=== PATIENT | male | born 1975 | race African-American/Black ===

== ENCOUNTER 2019-10-21 15:52 | Emergency (ER) | payer OTHER, MEDICAID ==
[~2019-10-21] VITALS: Ht 185.4 cm; Wt 122.5 kg
[2019-10-21 16:06] VITALS: BP 155/101
[2019-10-21] MEDS ORDERED: HYDROcodone-ACET 10/325MG TAB PO ONE (17:30)
== END 2019-10-21 18:42 | disposition home or self-care (01) ==
LOC: ER 15:52
DX: S90.02XA Contusion of left ankle, initial encounter (principal); R07.81 Pleurodynia; E11.9 Type 2 diabetes mellitus without complications; I10 Essential (primary) hypertension; V43.52XA Car driver injured in collision with other type car in traffic accident, initial encounter; Y93.89 Activity, other specified; Y92.488 Other paved roadways as the place of occurrence of the external cause; Y99.8 Other external cause status
CPT/HCPCS: 71101; 71250

== ENCOUNTER 2024-09-08 17:18 | Inpatient (IN) | payer MEDICAID, OTHER ==
[~2024-09-08] VITALS: Ht 182.9 cm; Wt 105.0 kg
--- NOTE | 2024-09-08 17:56 | ED.PDOC ---
GI ASSESSMENT HPI Comments HPI: Poor Historian. 49-year-old male brought in by ambulance from home. Patient called 911 for two week history of nonspecific epigastric pain intermittent nonradiating. Patient states that he smokes marijuana at least five Bong a day. Denies any other use of drugs. Has occasional use of alcohol. Denies any other acute symptoms. Vomit is food content. Past Medical History: Past Surgical History: 49y M who presents to the ED via EMS for chief complaint of abdominal pain. - pt states he has been having epigastric abdominal pain for the past 2x weeks - pt states his pain is intermittent, non-radiating, with no associated exacerbating or relieving factors - pt states he has been having exacerbation of his symptoms and called EMS - EMS arrived on scene and noted stable vitals - EMS states pt has 1x vomiting episode witnessed with vomit containing food particles - pt was given IV fluids, 8 mg Zofran and 1 gram Tylenol prior to ED arrival - pt in the ED, otherwise states he smokes 5 bongs of marijuana daily - pt otherwise denies any other symptoms at this time past medical history: Anhidrotic ectodermal dysplasia, DM, HTN past surgical history: denies allergies: denies medications: denies social history: denies tobacco use, denies ETOH use, endorses drug use (marijuana) REVIEW OF SYSTEMS: CONSTITUTIONAL: Denies acute: fever, diaphoresis, chills, HEAD: Denies acute: headache, photophobia Eyes: Denies acute: Double vision, vision loss, eye pain, eye discharge. EARS: Denies acute: tinnitus, hearing loss, ear discharge, ear pain, THROAT: Denies acute: sore throat, swelling, difficulty swallowing , pain with swallowing, change in voice. NECK: Denies acute: neck pain, neck swelling, stiff neck. HEART: Denies acute : chest pain, palpitations, LUNGS: Denies acute: SOB, wheezing, cough, hemoptysis ABDOMEN: Denies acute: diarrhea, melena , hematemesis, hematochezia SKIN: Denies acute: rash, redness, lesions, itchiness. EXTREMITIES: Denies acute: calf pain, numbness, tingling, weakness, denies pain in extremity. Denies acute: Low back pain. Neuro: Denies acute: focal neurological deficit, motor or sensory focal neurological deficit, tremors, seizure like activity, confusion, dizziness, change in mental status, loss of bowel or bladder function, cauda equina like symptoms. : Denies acute: dysuria, hematuria, flank pain, increase in urinary frequency. PSYCH: Denies acute: hallucination, suicidal ideation, homicidal ideation. PHYSICAL EXAM: General: -----mild---acute distress, awake and alert. Head: normocephalic, atraumatic. Neck: supple, trachea is midline, no swelling. Throat: Normal phonation. Eyes:, no erythema, no purulent discharge, no proptosis, no icterus. Heart: regular rate, regular rhythm, no significant murmur appreciated. Lungs: no apparent respiratory distress, Able to speak in full sentences. No wheezing, no rhonchi, no crackles. No stridors Clear to auscultation bilaterally. Abdomen: Epigastric tender to palpation, non distended, soft, no guarding, no rebound, + bowel sounds. Neuro: Awake, Alert, oriented to name, self, situation, follows commands GCS=15. Speech is normal. Skin: no petechia, no purpura, no cyanosis, non-pale, not jaundice. Lower extremities: --no - Pitting edema no deformity, no focal swelling, no calf TTP. Makes eye contact. moves all four extremities. Face: no apparent facial droop. no meningeal signs. ED COURSE: DISCLAIMER: This medical document was created using an electronic medical record system with voice recognition software and computerized dictation system. Although this document has been carefully reviewed, there might still be some phonetic and typographical errors. Occasional wrong-word or "sound-alike" substitutions may have occurred due to the inherent limitations of voice recognition software. These areas are purely typographical due to imperfections of the software p prince and do not reflect any compromise in the patient's medical care. Please read the chart carefully and recognize, using context, where these substitutions have occurred. Chief Complaint: Abdominal Pain Time Seen by MD: 17:22 Primary Care Provider: Michele Reviewed Notes: Medications, Allergies Allergies: Coded Allergies: EDVIN Inhibitors (Verified Allergy, Unknown, 04/19/14) Iodine (Verified Allergy, Unknown, 04/19/14) Home Meds No Active Prescriptions or Reported Meds Information Source: Patient, Emergency Med Personnel Mode of Arrival: EMS Past Medical History PAST MEDICAL HISTORY: DM, HTN Surgical History: Denies all surgeries Family History Family History: Reviewed,noncontributory to illness Social History Smoker: Non-Smoker Alcohol: Denies ETOH Use Drugs: Denies Drug Use Lives In: Home Was a procedure done? Was a procedure done?: No GI differential Dx Differential Diagnosis: Other (DDX include but not limited to diverticulitis, colitis, gastroenteritis, acute abdomen, SBO, enteritis, constipation, volvulus, appendicitis, Gallbladder disease, choledocolithiasis, ascending cholangitis, pancreatitis, intraAbdominal mass/neoplasm, hepatitis, UTI, pylonephritis, kidney stone, aneurysm, dissection, Inflammatory bowel disease, gastroparesis, ischemic bowel.) X-Ray, Labs, Meds, VS Vital Signs Date Time Temp Pulse Resp B/P (MAP) Pulse Ox O2 Delivery O2 Flow Rate FiO2 09/08/24 20:33 68 09/08/24 19:34 98.7 60 18 137/75 (95) 96 98.7 09/08/24 17:18 98.1 60 18 154/87 (109) 99 98.1 Lab Test 09/08/24 19:37 09/08/24 18:43 09/08/24 17:18 Range/Units Troponin I High Sensitivity 7 8 </=54 ng/L White Blood Count 9.4 4.4-10.8 10^3/uL Red Blood Count 4.93 4.5-5.90 10^6/uL Hemoglobin 15.1 13.5-17.5 g/dL Hematocrit 44.0 41.0-53.0 % Mean Corpuscular Volume 89.3 80.0-100.0 fL Mean Corpuscular Hemoglobin 30.6 28.0-32.0 pg Mean Corpuscular Hemoglobin Concent 34.3 32.0-36.0 g/dL Red Cell Distribution Width 14.7 H 11.8-14.3 % Platelet Count 236 140-450 10^3/uL Mean Platelet Volume 8.5 6.9-10.8 fL Neutrophils (%) (Auto) 79.0 37.0-80.0 % Lymphocytes (%) (Auto) 15.8 10.0-50.0 % Monocytes (%) (Auto) 4.8 0.0-12.0 % Eosinophils (%) (Auto) 0.0 0.0-7.0 % Basophils (%) (Auto) 0.4 0.0-2.0 % Neutrophils # (Auto) 7.4 1.6-8.6 10 ^3/uL Lymphocytes # (Auto) 1.5 0.4-5.4 10 ^3/uL Monocytes # (Auto) 0.5 0-1.3 10 ^3/uL Eosinophils # (Auto) 0 0-0.8 10 ^3/uL Basophils # (Auto) 0 0-0.2 10 ^3/uL Nucleated Red Blood Cells 0.0 % Sodium Level 141 136-145 mmol/L Potassium Level 3.7 3.5-5.1 mmol/L Chloride Level 102 98-107 mmol/L Carbon Dioxide Level 30 20-31 mmol/L Anion Gap 9 5-15 Blood Urea Nitrogen 17 9-23 mg/dL Creatinine 1.59 H 0.700-1.30 mg/dL Glomerular Filtration Rate Calc 53 >90 mL/min BUN/Creatinine Ratio 10.7 10.0-20.0 Serum Glucose 118 H 74-106 mg/dL Lactic Acid Level 0.9 0.4-2.0 mmol/L Calcium Level 9.5 8.7-10.4 mg/dL Total Bilirubin 0.7 0.2-1.0 mg/dL Aspartate Amino Transferase (AST) 32 <34 U/L Alanine Aminotransferase (ALT) 26 7-40 U/L Alkaline Phosphatase 52 46-116 U/L Total Protein 7.6 5.7-8.2 g/dL Albumin 4.6 3.2-4.8 g/dL Lipase 194 H 12-53 U/L Urine Color Yellow Yellow Urine Clarity Clear Clear Urine pH 7.0 5.0-9.0 Urine Specific [place] 1.033 1.001-1.035 Urine Protein 1+ H Negative Urine Ketones 2+ H Negative Urine Blood Negative Negative /uL Urine Nitrite Negative Negative Urine Bilirubin Negative Negative Urine Urobilinogen 3 H Negative mg/dL Urine Leukocyte Esterase Negative Negative /uL Urine RBC 3 0 - 3 /hpf Urine Microscopic WBC 4 H 0-3 /HPF Urine Squamous Epithelial Cells Mod <5 /hpf Urine Bacteria None seen None Seen /hpf Urine Glucose Normal Normal mg/dL [facility] [id number] [facility] [id number] Ph: [phone] DIAGNOSTIC IMAGING Diagnostic Imaging Report : [id number] Signed PATIENT: FREDO BLANCHARD ACCT: [id number] UNIT: [id number] : 1975 LOC: ER ROOM / BED: / AGE / SEX: 49 / M ADM STATUS: REG ER SERVICE [id number] ORDERING PHYSICIAN: OXANA BERRY DO PROCEDURE(s): ABPL - CT AB PEL WO CON-NO ORAL OR IV REASON: abd pain n/v ORDER NUMBER(s): [id number], ACCESSION NUMBER(s): [id number] Exam: CT CT AB PEL WO CON-NO ORAL OR IV History: abd pain n/v Comparison Study: None TECHNIQUE: Multidetector CT of the abdomen was performed from lung bases to p ubic symphysis. Imaging was performed without IV contrast. Axial, coronal and sagittal multiplanar reformats were obtained from the axial data set by the technologist. Radiation Dose Information: CT Dose: CTDI volume is 13.5 mGy. Dose-length product is 745.25 mGy*cm FINDINGS: Evaluation of solid organs is limited due to lack of intravenous contrast use. Findings: Lung Bases: No acute or significant lung base finding. Normal heart size. No pleural or pericardial effusion. Liver: The liver is normal in size. No focal lesions. Gallbladder and Biliary Tree: Unremarkable Spleen: Unremarkable Pancreas: The pancreas is grossly normal in appearance. Adrenal Glands: 2.2 cm left adrenal nodule tissue density -6 Hounsfield units consistent with a adenomyolipoma. Kidneys: Kidneys are grossly normal without calculi or hydronephrosis. Bladder: Grossly unremarkable for degree of distention. Bowel: The stomach is grossly normal in appearance. Small bowel and colon are normal in caliber and distribution. The appendix is not visualized; however, no secondary findings of acute appendicitis identified. Ascites: Absent Lymphadenopathy: No mesenteric, retroperitoneal or periportal lymphadenopathy. Abdominal Wall and Mesentery: Unremarkable. Vasculature: The visualized abdominal aorta is normal in size and caliber. Evaluation of abdominal and pelvic vessels is limited due to lack of intravenous contrast. Pelvic Organs: Unremarkable Musculoskeletal: No aggressive focal bony lesions, acute fractures or dislocation. Soft tissues: Unremarkable IMPRESSION: 1. 2.2 cm nodule left adrenal gland with tissue density consistent with fat. 2. No findings of bowel obstruction 3. No nephrolithiasis or hydronephrosis. 4. No calcified gallstones. Radiation optimization: All CT scans at this facility use at least one of these dose optimization techniques: automated exposure control mA and/or kV adjustment per patient size (includes targeted exams where dose is matched to clinical indication) or iterative reconstruction. ATED BY: MATT MANLEY Jr., DO DICTATED DATE/TIME: 09/08/241844 SIGNED BY: MATT MANLEY Jr., SIGNED DATE/TIME: 09/08/241844 CC: Time of 1ST Reevaluation: 00:00 Reevaluation 1ST: N/A Patient Education/Counseling: Diagnosis, Treatment Family Education/Counseling: No Family Present Comments Patient presented with the above HPI.---abdominal pain---workup was initiated. patient was found with the above mentioned diagnosis. the following medications were ordered: please refer to order lists of meds and tests obtained by myself Dr. Berry. Patient ED course and VS have been stabilized. Patient has been reassessed in the ED and remained in a stable condition. Pertinent incidental findings were discussed with the patient and/or family. Patient/family voices understanding and is agreeable with plan. Patient has been observed in the ED adequate length of time to insure improvement/stability. Escalation of care considered: Consideration of escalation to observation or admission Patient was ADMITTED to the medicine team for further evaluation and treatment of their presentation. All the reports of any imaging studies that were ordered by myself were reviewed by myself. Departure 1 Departure Time of Disposition: 18:08 Impression: Primary Impression: Marijuana abuse Additional Impression: Acute pancreatitis Disposition: ADMITTED INPATIENT Admit to: Tele Condition: Guarded e-Prescriptions No Active Prescriptions or Reported Meds Discharged With: Self Critical Care Note Critical Care Time?: Yes (35 min-critical care time only) I personally scribed for OXANA BERRY DO ([email or web address]) on 09/08/24 at 17:56. Electronically submitted by Allen Patel ([facility]). I personally scribed for OXANA BERRY DO ([facility]) on 09/08/24 at 18:23. Electronically submitted by Allen Patel ([facility]). I personally scribed for XOANA BERRY DO ([facility]) on 09/08/24 at 18:28. Electronically submitted by Allen Patel ([facility]). I personally scribed for OXANA BERRY DO ([facility]) on 09/08/24 at 21:19. Electronically submitted by Allen Patel ([facility]). OXANA BERRY DO Sep 08, 2024 17:56
--- NOTE | 2024-09-08 18:47 | DVH ---
Exam: CT CT AB PEL WO CON-NO ORAL OR IV History: abd pain n/v Comparison Study: None TECHNIQUE: Multidetector CT of the abdomen was performed from lung bases to pubic symphysis. Imaging was performed without IV contrast. Axial, coronal and sagittal multiplanar reformats were obtained fr om the axial data set by the technologist. Radiation Dose Information: CT Dose: CTDI volume is 13.5 mGy. Dose-length product is 745.25 mGy*cm FINDINGS: Evaluation of solid organs is limited due to lack of intravenous contrast use. Findings: Lung Bases: No acute or significant lung base finding. Normal heart size. No pleural or pericardial effusion. Liver: The liver is normal in size. No focal lesions. Gallbladder and Biliary Tree: Unremarkable Spleen: Unremarkable Pancreas: The pancreas is grossly normal in appearance. Adrenal Glands: 2.2 cm left adrenal nodule tissue density -6 Hounsfield units consistent with a adeno myolipoma. Kidneys: Kidneys are grossly normal without calculi or hydronephrosis. Bladder: Grossly unremarkable for degree of distention. Bowel: The stomach is grossly normal in appearance. Small bowel and colon are normal in caliber and d istribution. The appendix is not visualized; however, no secondary findings of acute appendicitis id entified. Ascites: Absent Lymphadenopathy: No mesenteric, retroperitoneal or periportal lymphadenopathy. Abdominal Wall and Mesentery: Unremarkable. Vasculature: The visualized abdominal aorta is normal in size and caliber. Evaluation of abdominal a nd pelvic vessels is limited due to lack of intravenous contrast. Pelvic Organs: Unremarkable Musculoskeletal: No aggressive focal bony lesions, acute fractures or dislocation. Soft tissues: Unremarkable IMPRESSION: 1. 2.2 cm nodule left adrenal gland with tissue density consistent with fat. 2. No findings of bowel obstruction 3. No nephrolithiasis or hydronephrosis. 4. No calcified gallstones. Radiation optimization: All CT scans at this facility use at least one of these dose optimization te chniques: automated exposure control mA and/or kV adjustment per patient size (includes targeted exa ms where dose is matched to clinical indication) or iterative reconstruction.
[2024-09-08 19:08] LABS: Basophils # (auto) 0 10 ^3/uL (0-0.2); Basophils % (auto) 0.4 % (0.0-2.0); Eosinophils # (auto) 0 10 ^3/uL (0-0.8); Hemoglobin 15.1 g/dL (13.5-17.5); Lymphocytes # (auto) 1.5 10 ^3/uL (0.4-5.4); Lymphocytes % (auto) 15.8 % (10.0-50.0); Mean Corpuscular Hemoglobin 30.6 pg (28.0-32.0); Mean Corpuscular Hgb Conc. 34.3 g/dL (32.0-36.0); Mean Corpuscular Volume 89.3 fL (80.0-100.0); Monocytes # (auto) 0.5 10 ^3/uL (0-1.3); Monocytes % (auto) 4.8 % (0.0-12.0); Neutrophils # (auto) 7.4 10 ^3/uL (1.6-8.6); Platelet Count (auto) 236 10^3/uL (140-450); Red Blood Cells 4.93 10^6/uL (4.5-5.90); Red Cell Distribution Width 14.7 % (11.8-14.3); White Blood Cell 9.4 10^3/uL (4.4-10.8)
[2024-09-08 19:30] LABS: Alanine Aminotransferase 26 U/L (7-40); Alkaline Phosphatase 52 U/L (46-116); Anion Gap 9 (5-15); Aspartate Aminotransferase 32 U/L (<34); BUN/Creatinine Ratio 10.7 (10.0-20.0); Blood Urea Nitrogen 17 mg/dL (9-23); Calcium 9.5 mg/dL (8.7-10.4); Carbon Dioxide 30 mmol/L (20-31); Chloride 102 mmol/L (98-107); Potassium 3.7 mmol/L (3.5-5.1); Sodium 141 mmol/L (136-145); Total Protein 7.6 g/dL (5.7-8.2)
[2024-09-08 19:31] LABS: Albumin 4.6 g/dL (3.2-4.8); Bilirubin, Total 0.7 mg/dL (0.2-1.0)
[2024-09-08 19:32] LABS: Glucose 118 mg/dL (74-106); Lipase 194 U/L (12-53)
[2024-09-08] MEDS: SODIUM CHLORIDE 0.9% 1,000 ML IV ONE (20:23)
[2024-09-08] MEDS: ONDANSETRON HCL 4 MG/2 ML VIAL IV ONE (20:24)
[2024-09-08 22:01] LABS: Urine Bacteria None Seen /hpf (None Seen)
[2024-09-08 22:07] LABS: Urine Blood Negative /uL (Negative); Urine Clarity Clear (Clear); Urine Color Yellow (Yellow); Urine Protein, UAD 1+ (Negative); Urine Specific Gravity 1.033 (1.001-1.035); Urine Squamous Epithelial Cell MOD /hpf (<5); Urine Urobilinogen 3 mg/dL (Negative); Urine WBC 4 /HPF (0-3)
[2024-09-08] MEDS ORDERED: HYDROcodone-ACET 5/325MG TAB PO PRN (22:30)
[2024-09-08] MEDS ORDERED: ACETAMINOPHEN 325 MG TAB PO PRN (22:30)
[2024-09-08] MEDS ORDERED: MORPHINE SULFATE INJ 2 MG/ml SYRG IV PRN ×2 (22:30→23:45)
[2024-09-08] MEDS: LACTATED RINGER'S 1,000 ML IV SCH (22:30)
[2024-09-08] MEDS ORDERED: DOCUSATE SOD 100 MG CAP PO PRN (22:30)
[2024-09-08] MEDS ORDERED: NITROGLYCERIN 0.4 MG SL TAB SL PRN (23:45)
--- NOTE | 2024-09-08 23:46 | DVHHP2 ---
History of Present Illness Reason for Visit: Acute pancreatitis History of Present Illness The patient is a 49 male with past medical history of diabetes mellitus and hypertension who presented to [facility] ED with complaint of abdominal pain. Patient reports symptoms progressively get worse with intermittent epigastric abdominal pain for the past 2 weeks, nonradiating, rating 7/10 numeric scale, getting worse today that prompted this visit. Patient was seen and evaluated in the ED, laboratory data shows WBC 9.4, platelets 236, sodium 141, potassium 3.7, BUN 17, creatinine 1.59, glucose 118, calcium 9.5, troponin 7, lipase 194, blood pressure 137/75, heart rate 68, temperature 98.7 F, O2 saturation 96% on room air. Abdomen/pelvis CT revealing 2.2 cm nodule left adrenal gland with tissue density consistent with fat, no findings of bowel obstruction. Please see medication orders section in the computer. On my assessment, patient denied chest pain, no headache, no dizziness, diaphoresis, no shortness of breaths, no abdominal pain at this moment, no nausea, no vomiting, no fever, no chills. Patient was admitted for further evaluation and medical management. Past Medical History DM, HTN Past Surgical History Denies all surgeries Family History Reviewed, noncontributory to the management of this case. Past Social History The patient lives at home, denies smoking, no alcohol, uses marijuana. Review of Systems Constitutional: No: Fever, Chills, Sweats, Weakness, Malaise, Other Eyes: No: Pain, Vision change, Conjunctivae inflammation, Eyelid inflammation, Other, Redness ENT: No: Ear pain, Ear discharge, Nose pain, Nose discharge, Nose congestion, Mouth pain, Mouth swelling, Throat pain, Throat swelling, Other Respiratory: No: Cough, Dry, Shortness of breath, SOB with excertion, Wheezing, Hemoptysis, Pleuritic Pain, Sputum, Wheezing, Other Cardiovascular: No: Chest Pain, Palpitations, Orthopnea, Paroxysmal Noc. Dyspnea, Edema, Lt Headedness, Other Gastrointestinal: Abdominal Pain; No: Nausea, Vomiting, Diarrhea, Constipation, Melena, Hematochezia, Other Genitourinary: No Dysuria, No Frequency, No Incontinence, No Hematuria, No Retention, No Other Musculoskeletal: No: other, neck pain, shoulder pain, arm pain, back pain, hand pain, leg pain, foot pain Skin: No: Rash, Lesions, Jaundice, Bruising, Other Neurological: No: Weakness, Numbness, Incoordination, Change in speech, Con fusion, Seizures, Other Allergies: Coded Allergies: EDVIN Inhibitors (Verified Allergy, Unknown, 04/19/14) Iodine (Verified Allergy, Unknown, 04/19/14) Medications Current Medications Medications Dose Ordered Sig/Akash Route Start Time Stop Time Status Last Admin Dose Admin Lactated Ringer's 1,000 ml @ 100 mls/hr Q10H IV 09/08/24 22:30 Acetaminophen/ Hydrocodone Bitart 1 tab Q4HP PRN PO 09/08/24 22:30 Ondansetron HCl 4 mg Q4HP PRN IV 09/08/24 22:30 Docusate Sodium 100 mg BIDPRN PRN PO 09/08/24 22:30 Acetaminophen 650 mg Q6HP PRN PO 09/08/24 22:30 Morphine Sulfate 2 mg Q4HPRN PRN IV 09/08/24 22:30 Exam Vital Signs Vital Signs Date Time Temp Pulse Resp B/P (MAP) Pulse Ox O2 Delivery O2 Flow Rate FiO2 09/08/24 20:33 68 09/08/24 19:34 98.7 18 137/75 (95) 96 98.7 General Appearance: Alert, Oriented X3, Cooperative, No acute distress HEENT: Atraumatic, PERRLA, EOMI, Mucous membr. moist/pink Respiratory: Clear to auscultation, Normal air movement Cardiovascular: Regular rate, Normal S1, Normal S2, No murmurs Abdominal: Normal bowel sounds, Soft, No hepatospenomegaly, No masses, Other (Reports tenderness) Extremities: No clubbing, No cyanosis, No edema, Normal pulses, No tenderness/swelling Skin: No rashes, No breakdown, No significant lesion Neuro: Normal gait, Normal speech, Strength at 5/5 X4 ext, Normal tone, Sensation intact, Cranial nerves 3-12 NL, Reflexes 2+ Psych/Mental Status: Mental status NL, Mood NL Labs/Xrays Labs Test 09/08/24 19:37 09/08/24 18:43 09/08/24 17:18 Range/Units Troponin I High Sensitivity 7 </=54 ng/L White Blood Count 9.4 4.4-10.8 10^3/uL Red Blood Count 4.93 4.5-5.90 10^6/uL Hemoglobin 15.1 13.5-17.5 g/dL Hematocrit 44.0 41.0-53.0 % Mean Corpuscular Volume 89.3 80.0-100.0 fL Mean Corpuscular Hemoglobin 30.6 28.0-32.0 pg Mean Corpuscular Hemoglobin Concent 34.3 32.0-36.0 g/dL Red Cell Distribution Width 14.7 H 11.8-14.3 % Platelet Count 236 140-450 10^3/uL Mean Platelet Volume 8.5 6.9-10.8 fL Neutrophils (%) (Auto) 79.0 37.0-80.0 % Lymphocytes (%) (Auto) 15.8 10.0-50.0 % Monocytes (%) (Auto) 4.8 0.0-12.0 % Eosinophils (%) (Auto) 0.0 0.0-7.0 % Basophils (%) (Auto) 0.4 0.0-2.0 % Neutrophils # (Auto) 7.4 1.6-8.6 10 ^3/uL Lymphocytes # (Auto) 1.5 0.4-5.4 10 ^3/uL Monocytes # (Auto) 0.5 0-1.3 10 ^3/uL Eosinophils # (Auto) 0 0-0.8 10 ^3/uL Basophils # (Auto) 0 0-0.2 10 ^3/uL Nucleated Red Blood Cells 0.0 % Sodium Level 141 136-145 mmol/L Potassium Level 3.7 3.5-5.1 mmol/L Chloride Level 102 98-107 mmol/L Carbon Dioxide Level 30 20-31 mmol/L Anion Gap 9 5-15 Blood Urea Nitrogen 17 9-23 mg/dL Creatinine 1.59 H 0.700-1.30 mg/dL Glomerular Filtration Rate Calc 53 >90 mL/min BUN/Creatinine Ratio 10.7 10.0-20.0 Serum Glucose 118 H 74-106 mg/dL Lactic Acid Level 0.9 0.4-2.0 mmol/L Calcium Level 9.5 8.7-10.4 mg/dL Total Bilirubin 0.7 0.2-1.0 mg/dL Aspartate Amino Transferase (AST) 32 <34 U/L Alanine Aminotransferase (ALT) 26 7-40 U/L Alkaline Phosphatase 52 46-116 U/L Total Protein 7.6 5.7-8.2 g/dL Albumin 4.6 3.2-4.8 g/dL Lipase 194 H 12-53 U/L Urine Color Yellow Yellow Urine Clarity Clear Clear Urine pH 7.0 5.0-9.0 Urine Specific [place] 1.033 1.001-1.035 Urine Protein 1+ H Negative Urine Ketones 2+ H Negative Urine Blood Negative Negative /uL Urine Nitrite Negative Negative Urine Bilirubin Negative Negative Urine Urobilinogen 3 H Negative mg/dL Urine Leukocyte Esterase Negative Negative /uL Urine RBC 3 0 - 3 /hpf Urine Microscopic WBC 4 H 0-3 /HPF Urine Squamous Epithelial Cells Mod <5 /hpf Urine Bacteria None seen None Seen /hpf Urine Glucose Normal Normal mg/dL PATIENT: FREDO BLANCHARD ACCT: [id number] UNIT: [id number] : 1975 LOC: ER ROOM / BED: / AGE / SEX: 49 / M ADM STATUS: REG ER SERVICE [id number] ORDERING PHYSICIAN: OXANA BERRY DO PROCEDURE(s): ABPL - CT AB PEL WO CON-NO ORAL OR IV REASON: abd pain n/v ORDER NUMBER(s): [id number], ACCESSION NUMBER(s): [id number] Exam: CT CT AB PEL WO CON-NO ORAL OR IV History: abd pain n/v Comparison Study: None TECHNIQUE: Multidetector CT of the abdomen was performed from lung bases to pubic symphysis. Imaging was performed without IV contrast. Axial, coronal and sagittal multiplanar reformats were obtained from the axial data set by the technologist. Radiation Dose Information: CT Dose: CTDI volume is 13.5 mGy. Dose-length product is 745.25 mGy*cm FINDINGS: Evaluation of solid organs is limited due to lack of intravenous contrast use. Findings: Lung Bases: No acute or significant lung base finding. Normal heart size. No pleural or pericardial effusion. Liver: The liver is normal in size. No focal lesions. Gallbladder and Biliary Tree: Unremarkable Spleen: Unremarkable Pancreas: The pancreas is grossly normal in appearance. Adrenal Glands: 2.2 cm left adrenal nodule tissue density -6 Hounsfield units consistent with a adenomyolipoma. Kidneys: Kidneys are grossly normal without calculi or hydronephrosis. Bladder: Grossly unremarkable for degree of distention. Bowel: The stomach is grossly normal in appearance. Small bowel and colon are normal in caliber and distribution. The appendix is not visualized; however, no secondary findings of acute appendicitis identified. Ascites: Absent Lymphadenopathy: No mesenteric, retroperitoneal or periportal lymphadenopathy. Abdominal Wall and Mesentery: Unremarkable. Vasculature: The visualized abdominal aorta is normal in size and caliber. Evaluation of abdominal and pelvic vessels is limited due to lack of intravenous contrast. Pelvic Organs: Unremarkable Musculoskeletal: No aggressive focal bony lesions, acute fractures or dislocation. Soft tissues: Unremarkable IMPRESSION: 1. 2.2 cm nodule left adrenal gland with tissue density consistent with fat. 2. No findings of bowel obstruction 3. No nephrolithiasis or hydronephrosis. 4. No calcified gallstones. Assessment/Plan Assessment/Plan Acute abdominal pain Acute renal injury Serum lipase elevation Plan 1. Admit to med surge unit 2. Breathing treatment 3. Pain control management 4. Management of fluids and electrolytes 5. Consultation for hospitalist 6. Diagnostic tests abdomen/pelvis CT 7. DVT prophylaxis-on SCDs 8. Repeat labs CBC, CMP in a.m. 9. Continue with current medical management 10. Treatment plan discussed with patient and RN. Patient verbalized understanding. Plan discussed with: Patient, Other (RN) My Orders Orders - ZACK WHITT DNP Procedure Category Date Status Time Lactated Ringer's PHA 09/08/24 In Process 22:30 Allergies RACHAEL 09/08/24 In Process 22:24 Code Status CODE 09/08/24 Transmitted 22:24 Oxygen Per Hour RT 09/08/24 Transmitted 22:24 Hydrocodone-Acet PHA 09/08/24 In Process 5/325mg Tab ([place] 22:30 Ondansetron Hcl PHA 09/08/24 In Process (Zofran) 22:30 Docusate Sodium PHA 09/08/24 In Process Capsule (Colace 22:30 Complete Blood Count LAB 09/09/24 Verified 04:00 Comprehensive LAB 09/09/24 Verified Metabolic Panel 04:00 Condition: Serious RACHAEL 09/08/24 In Process 22:24 Acetaminophen Tablet PHA 09/08/24 In Process (Tylenol Tablet) 22:30 Clear Liq Diet DIET 09/09/24 Transmitted Breakfast Bedrest With Bathroom RACHAEL 09/08/24 In Process Privileg 22:24 Morphine Sulfate PHA 09/08/24 In Process Injection 22:30 Sequential RACHAEL 09/08/24 In Process Compression Device Problem List: (1) Acute abdominal pain (2) Acute renal injury (3) Serum lipase elevation Date of Service: Sep 08, 2024 Billing Provider: ZACK WHITT DNP Common Visit Codes: [id number] INP/OBS CARE (HIGH) ZACK WHITT DNP Sep 08, 2024 23:46
--- NOTE | 2024-09-09 01:23 | ECG ---
[facility] Test Date: 2024-09-08 Test Time: 20:33:43 Pat Name: FREDO BLANCHARD Department: ED Room: [address] [place] [address] A Gender: M Car Spotter: ELISEO : 1975 Requested By: OXANA BERRY Order Number: [id number] Reading MD: Dileep Yeboah Measurements Intervals [place] Rate: 68 P: 49 TN: 180 QRS: -7 QRSD: 90 T: 56 QT: 400 QTc: 426 Interpretive Statements Sinus rhythm Low voltage, precordial leads Electronically Signed On 09-09-2024 20:14:05 PDT by Dileep Yeboah Please click the below link to view image of tracing.
[2024-09-09 01:30] VITALS: BP 164/80; PULSE 75; RESP 18; TEMP 98.2; O2SAT 99
[2024-09-09] MEDS: ONDANSETRON HCL 4 MG/2 ML VIAL IV PRN (04:15)
[2024-09-09 05:00] VITALS: BP 142/75; PULSE 82; RESP 18; TEMP 98.2; O2SAT 82
[2024-09-09 06:47] LABS: Basophils # (auto) 0 10 ^3/uL (0-0.2); Basophils % (auto) 0.1 % (0.0-2.0); Eosinophils # (auto) 0 10 ^3/uL (0-0.8); Hematocrit 42.3 % (41.0-53.0); Hemoglobin 14.6 g/dL (13.5-17.5); Lymphocytes # (auto) 1.3 10 ^3/uL (0.4-5.4); Lymphocytes % (auto) 12.4 % (10.0-50.0); Mean Corpuscular Hemoglobin 30.8 pg (28.0-32.0); Mean Corpuscular Hgb Conc. 34.6 g/dL (32.0-36.0); Mean Corpuscular Volume 89.1 fL (80.0-100.0); Monocytes # (auto) 0.5 10 ^3/uL (0-1.3); Monocytes % (auto) 4.6 % (0.0-12.0); Neutrophils % (auto) 82.9 % (37.0-80.0); Platelet Count (auto) 220 10^3/uL (140-450); Red Blood Cells 4.75 10^6/uL (4.5-5.90); Red Cell Distribution Width 14.7 % (11.8-14.3); White Blood Cell 10.9 10^3/uL (4.4-10.8)
[2024-09-09 07:02] LABS: Alanine Aminotransferase 21 U/L (7-40); Albumin 4.2 g/dL (3.2-4.8); Alkaline Phosphatase 46 U/L (46-116); Anion Gap 10 (5-15); Aspartate Aminotransferase 24 U/L (<34); BUN/Creatinine Ratio 10.5 (10.0-20.0); Bilirubin, Total 0.6 mg/dL (0.2-1.0); Blood Urea Nitrogen 16 mg/dL (9-23); Calcium 9.1 mg/dL (8.7-10.4); Carbon Dioxide 31 mmol/L (20-31); Chloride 103 mmol/L (98-107); Sodium 144 mmol/L (136-145); Total Protein 7.1 g/dL (5.7-8.2)
[2024-09-09 07:03] LABS: Glucose 133 mg/dL (74-106); Potassium 3.4 mmol/L (3.5-5.1)
[2024-09-09 08:00] VITALS: BP 167/90; PULSE 61; RESP 12; TEMP 98.1; O2SAT 98
[2024-09-09 12:42] VITALS: BP 160/80; PULSE 51; RESP 12; O2SAT 98
[2024-09-09 13:11] LABS: Amylase 125 U/L (30-118); Lipase 150 U/L (12-53)
--- NOTE | 2024-09-09 15:45 | DVHPN2 ---
Subjective I am assuming the care of the patient from today onwards. Patient complaining of epigastric pain , denies any nausea or vomiting the Reviewed: Care Plan Changes from previous H/P or p: No Changes Eyes: No Pain, No Vision change, No Conjunctivae inflammation, No Eyelid inflammation, No Other, No Redness ENT: No Ear pain, No Ear discharge, No Nose pain, No Nose discharge, No Nose congestion, No Mouth pain, No Mouth swelling, No Throat pain, No Throat swelling, No Other Cardiovascular: No Chest Pain, No Palpitations, No Orthopnea, No Paroxysmal Noc. Dyspnea, No Edema, No Lt Headedness, No Other Respiratory: No Cough, No Dry, No Shortness of breath, No SOB with excertion, No Wheezing, No Hemoptysis, No Pleuritic Pain, No Sputum, No Other Gastrointestinal: No Nausea, No Vomiting; Abdominal Pain; No Diarrhea, No Constipation, No Melena, No Hematochezia, No Other Genitourinary: No Dysuria, No Frequency, No Incontinence, No Hematuria, No Retention, No Other Musculoskeletal: No other, No neck pain, No shoulder pain, No arm pain, No back pain, No hand pain, No leg pain, No foot pain Skin: No Rash, No Lesions, No Jaundice, No Bruising, No Other Objective Vitals Vital Signs Date Time Temp Pulse Resp B/P (MAP) Pulse Ox O2 Delivery O2 Flow Rate FiO2 09/09/24 12:42 51 12 160/80 (106) 98 09/09/24 08:00 98.1 98.1 09/09/24 01:00 Room Air Exam HEENT pupils reactive Neck is supple CVS S1-S2 regular rate and rhythm Respiratory bilateral equal breath sounds GI posterior bowel sounds soft mildly tender in the epigastric region has been no guarding no rigidity Extremity no pedal edema [employer] normal deficit Medications Current Medications Medications Dose Ordered Sig/Akash Route Start Time Stop Time Status Last Admin Dose Admin Lactated Ringer's 1,000 ml @ 100 mls/hr Q10H IV 09/08/24 22:30 09/09/24 13:08 100 MLS/HR Acetaminophen/ Hydrocodone Bitart 1 tab Q4HP PRN PO 09/08/24 22:30 Ondansetron HCl 4 mg Q4HP PRN IV 09/08/24 22:30 09/09/24 11:13 4 MG Docusate Sodium 100 mg BIDPRN PRN PO 09/08/24 22:30 Acetaminophen 650 mg Q6HP PRN PO 09/08/24 22:30 Morphine Sulfate 2 mg Q4HPRN PRN IV 09/08/24 22:30 Nitroglycerin 0.4 mg Q5MINP PRN SL 09/08/24 23:45 Morphine Sulfate 2 mg Q30M PRN IV 09/08/24 23:45 Laboratory Results Laboratory Tests 09/09/24 06:12 Chemistry Test 09/08/24 18:43 09/09/24 06:12 Albumin 4.6 g/dL (3.2-4.8) 4.2 g/dL (3.2-4.8) Calcium Level 9.5 mg/dL (8.7-10.4) 9.1 mg/dL (8.7-10.4) Total Protein 7.6 g/dL (5.7-8.2) 7.1 g/dL (5.7-8.2) Lipid panel Test 09/08/24 18:43 09/09/24 06:12 Lipase 194 U/L (12-53) H 150 U/L (12-53) H LFT Test 09/08/24 18:43 09/09/24 06:12 Alanine Aminotransferase (ALT) 26 U/L (7-40) 21 U/L (7-40) Alkaline Phosphatase 52 U/L (46-116) 46 U/L (46-116) Aspartate Amino Transferase (AST) 32 U/L (<34) 24 U/L (<34) Total Bilirubin 0.7 mg/dL (0.2-1.0) 0.6 mg/dL (0.2-1.0) Urinalysis Test 09/08/24 17:18 Urine Color Yellow (Yellow) Urine Clarity Clear (Clear) Urine pH 7.0 (5.0-9.0) Urine Specific [place] 1.033 (1.001-1.035) Urine Protein 1+ (Negative) H Urine Ketones 2+ (Negative) H Urine Blood Negative /uL (Negative) Urine Nitrite Negative (Negative) Urine Bilirubin Negative (Negative) Urine Urobilinogen 3 mg/dL (Negative) H Urine Leukocyte Esterase Negative /uL (Negative) Urine RBC 3 /hpf (0 - 3) Urine Microscopic WBC 4 /HPF (0-3) H Urine Squamous Epithelial Cells Mod /hpf (<5) Urine Bacteria None seen /hpf (None Seen) Urine Glucose Normal mg/dL (Normal) Assessment/Plan Assessment/Plan 49-year-old male with a known history of diabetes mellitus type 2, hypertension initially presented to the hospital by the epigastric pain associated with the nausea and vomiting found to have 1. Acute pancreatitis 2. Elevated amylase and lipase country to 1. 3. Diabetes mellitus type 2 next 4. Hypertension 5. Acute kidney injury suspected vasomotor nephropathy -liquid diet as tolerated advance to 2 g sodium and 1800 ADA -discharge plan once pancreatitis resolves. Plan discussed with: Patient My Orders Orders - DENIS TORRES MD Procedure Category Date Status Time Full Liq Diet DIET 09/09/24 Transmitted Dinner Amylase LAB 09/10/24 Verified 04:00 Lipase LAB 09/10/24 Verified 04:00 Date of Service: Sep 09, 2024 Billing Provider: DENIS TORRES MD Common Visit Codes: [id number] INP/OBS CARE(MOD) DENIS TORRES MD Sep 09, 2024 15:45
--- NOTE | 2024-09-10 13:10 | DVHDS2 ---
Discharge Summary Date of Admission Sep 08, 2024 at 23:45 Date of Discharge: Sep 09, 2024 Labs/Diagnostic Data: Laboratory Results Test 09/09/24 06:12 09/08/24 19:37 09/08/24 18:43 09/08/24 17:18 White Blood Count 10.9 10^3/uL (4.4-10.8) Red Blood Count 4.75 10^6/uL (4.5-5.90) Hemoglobin 14.6 g/dL (13.5-17.5) Hematocrit 42.3 % (41.0-53.0) Mean Corpuscular Volume 89.1 fL (80.0-100.0) Mean Corpuscular Hemoglobin 30.8 pg (28.0-32.0) Mean Corpuscular Hemoglobin Concent 34.6 g/dL (32.0-36.0) Red Cell Distribution Width 14.7 % (11.8-14.3) Platelet Count 220 10^3/uL (140-450) Mean Platelet Volume 8.3 fL (6.9-10.8) Neutrophils (%) (Auto) 82.9 % (37.0-80.0) Lymphocytes (%) (Auto) 12.4 % (10.0-50.0) Monocytes (%) (Auto) 4.6 % (0.0-12.0) Eosinophils (%) (Auto) 0.0 % (0.0-7.0) Basophils (%) (Auto) 0.1 % (0.0-2.0) Neutrophils # (Auto) 9.0 10 ^3/uL (1.6-8.6) Lymphocytes # (Auto) 1.3 10 ^3/uL (0.4-5.4) Monocytes # (Auto) 0.5 10 ^3/uL (0-1.3) Eosinophils # (Auto) 0 10 ^3/uL (0-0.8) Basophils # (Auto) 0 10 ^3/uL (0-0.2) Nucleated Red Blood Cells 0.0 % Sodium Level 144 mmol/L (136-145) Potassium Level 3.4 mmol/L (3.5-5.1) Chloride Level 103 mmol/L (98-107) Carbon Dioxide Level 31 mmol/L (20-31) Anion Gap 10 (5-15) Blood Urea Nitrogen 16 mg/dL (9-23) Creatinine 1.52 mg/dL (0.700-1.30) Glomerular Filtration Rate Calc 56 mL/min (>90) BUN/Creatinine Ratio 10.5 (10.0-20.0) Serum Glucose 133 mg/dL (74-106) Calcium Level 9.1 mg/dL (8.7-10.4) Total Bilirubin 0.6 mg/dL (0.2-1.0) Aspartate Amino Transferase (AST) 24 U/L (<34) Alanine Aminotransferase (ALT) 21 U/L (7-40) Alkaline Phosphatase 46 U/L (46-116) Total Protein 7.1 g/dL (5.7-8.2) Albumin 4.2 g/dL (3.2-4.8) Amylase Level 125 U/L (30-118) Lipase 150 U/L (12-53) Troponin I High Sensitivity 7 ng/L (</=54) Lactic Acid Level 0.9 mmol/L (0.4-2.0) Urine Color Yellow (Yellow) Urine Clarity Clear (Clear) Urine pH 7.0 (5.0-9.0) Urine Specific [place] 1.033 (1.001-1.035) Urine Protein 1+ (Negative) Urine Ketones 2+ (Negative) Urine Blood Negative /uL (Negative) Urine Nitrite Negative (Negative) Urine Bilirubin Negative (Negative) Urine Urobilinogen 3 mg/dL (Negative) Urine Leukocyte Esterase Negative /uL (Negative) Urine RBC 3 /hpf (0 - 3) Urine Microscopic WBC 4 /HPF (0-3) Urine Squamous Epithelial Cells Mod /hpf (<5) Urine Bacteria None seen /hpf (None Seen) Urine Glucose Normal mg/dL (Normal) Other Laboratory Tests 09/09/24 06:12 Brief Hx & Hospital Course: 49-year-old male with a known history of diabetes mellitus type 2, hypertension initially presented to the hospital by the epigastric pain associated with the nausea and vomiting found to have acute pancreatitis. Patient does have known history of diabetes type 2 and hypertension. Patient also had acute kidney injury suspected secondary to vasomotor nephropathy. Patient left against medical advice before completion of workup and treatment. Condition at Discharge: Undetermined Final Diagnosis/Problems List 49-year-old male with a known history of diabetes mellitus type 2, hypertension initially presented to the hospital by the epigastric pain associated with the nausea and vomiting found to have 1. Acute pancreatitis 2. Elevated amylase and lipase country to 1. 3. Diabetes mellitus type 2 next 4. Hypertension 5. Acute kidney injury suspected vasomotor nephropathy Discharge Disposition: AMA SNF Discharge Will this Physician continue t: No Discharge Statement: "Patient was advised to return to the ER or call 911 if any headaches, dizziness, shortness of breath, chest pain, abdominal pain, bleeding, fevers, or worsening of medical condition. Patient was counseled about treatment plan, medications, possible side effects, patientverbalized understanding. All questions were answered to the best of my ability. This discharge took greater then 30 minutes in planning, reviewing documentation, counseling the patient, and discussing with other team members." ASSESSMENT ASSESSMENT Assessment Date of Service: Sep 10, 2024 Billing Provider: DENIS TORRES MD Common Visit Codes: [id number] DISCH DAY >30min DENIS TORRES MD Sep 10, 2024 13:09
== END 2024-09-09 16:45 | disposition left against medical advice (07) | DRG 282 ==
LOC: ER 17:18 → EDUNIT# 17:18 → EDBD 17:18 → OVERFLOW 23:45
PROVIDERS: ADMIT Nurse Practitioner Family; ATTEND Nurse Practitioner Family
DX: K85.90 Acute pancreatitis without necrosis or infection, unspecified (principal); N17.0 Acute kidney failure with tubular necrosis; I10 Essential (primary) hypertension; F12.10 Cannabis abuse, uncomplicated; E11.9 Type 2 diabetes mellitus without complications; R94.8 Abnormal results of function studies of other organs and systems; Z53.29 Procedure and treatment not carried out because of patient's decision for other reasons; Z91.041 Radiographic dye allergy status
CPT/HCPCS: 36415; 74176; 80053; 81001; 82150; 83605; 83690; 84484; 85025; 93005; 96361; 96374; G0378; J2405